=== PATIENT | female | born 1980 | race Caucasian/White ===

== ENCOUNTER 2016-06-26 08:00 | Inpatient (IN) | payer OTHER ==
[~2016-06-26] VITALS: Ht 165.1 cm; Wt 108.2 kg
[~2016-06-26 08:00] MED LIST: EPHEDrine SULFATE 50 MG/5 ML SYG ONE; OXYTOCIN 30 UNITS/LR 500 ML BAG IV ONE; PREN-39 PO
[2016-06-26] MEDS ORDERED: LACTATED RINGER'S 1,000 ML IV ONE (08:31)
[2016-06-26] MEDS ORDERED: LACTATED RINGER'S 1,000 ML IV SCH (08:41)
[2016-06-26 08:44] VITALS: Ht 165.1 cm; Wt 108.2 kg
[2016-06-26 08:45] VITALS: BP 124/68; PULSE 89; RESP 18
[2016-06-26] MEDS ORDERED: CLINDAMYCIN 900 MG/D5W (PMX) 50 ML IV SCH (09:00)
[2016-06-26] MEDS ORDERED: CARBOPROST 250 MCG INJ IM PRN ×2 (09:00→22:00)
[2016-06-26] MEDS ORDERED: METHYLERGONOVINE 0.2 MG INJ IM PRN ×2 (09:00→22:00)
[2016-06-26] MEDS ORDERED: ONDANSETRON 4 MG INJ IV ONE (09:00)
[2016-06-26] MEDS ORDERED: OXYTOCIN 30 UNITS/LR 500 ML IV SCH (09:00)
[2016-06-26] MEDS ORDERED: CITRIC ACID/NA CITRATE 30 ML CUP PO ONE (09:00)
[2016-06-26] MEDS ORDERED: MISOPROSTOL 200 MCG TAB PR PRN ×2 (09:00→22:00)
[2016-06-26] MEDS ORDERED: OXYTOCIN 30 UNITS/LR 500 ML IV PRN ×2 (09:00→22:00)
[2016-06-26 09:37] LABS: INR 0.94; PARTIAL THROMBOPLASTIN TIME 28.9 Sec (25.0-35.0); PROTIME 12.6 Sec (12.2-14.2)
[2016-06-26 11:57] LABS: ADD SCAN DIFF NO
[2016-06-26 12:08] LABS: BASOPHILS % 0.2 % (0.0-2.0); EOSINOPHILS % 0.4 % (0.0-7.0); HEMATOCRIT 34.7 % (37.0-47.0); LYMPHOCYTES # 1.7 10^3/ul (0.8-2.9); LYMPHOCYTES % 18.3 % (15.0-51.0); MEAN CORPUSCULAR HEMOGLOBIN 27.7 pg (29.0-33.0); MEAN CORPUSCULAR HGB CONC 31.7 g/dl (32.0-37.0); MEAN CORPUSCULAR VOLUME 87.4 fl (82.0-101.0); MEAN PLATELET VOLUME 11.5 fl (7.4-10.4); MONOCYTE # 0.7 10^3/ul (0.3-0.9); MONOCYTES % 7.4 % (0.0-11.0); NEUTROPHIL # 6.5 10^3/ul (1.6-7.5); NEUTROPHILS % 71.3 % (39.0-77.0); PLATELET COUNT 164 10^3/UL (140-415); RED BLOOD COUNT 3.97 10^6/ul (4.20-5.40); RED CELL DISTRIBUTION WIDTH 15.4 % (11.5-14.5); WHITE BLOOD COUNT 9.2 10^3/ul (4.8-10.8)
[2016-06-26] MEDS ORDERED: GENTAMICIN 80 MG/NS (PMX) 50 ML IVPB SCH (15:30)
[2016-06-26] MEDS ORDERED: PHENYLephrine (100 MCG/ML) 5ML SYG ONE ×3 (15:35→16:17)
[2016-06-26] MEDS ORDERED: EPHEDrine SULFATE 50 MG/5 ML SYG ONE (15:40)
[2016-06-26] MEDS ORDERED: KETOROLAC 15 MG INJ IV ONE (16:00)
[2016-06-26] MEDS ORDERED: HYDROmorphONE 1 MG/ML SYG IV PRN ×2 (16:00)
[2016-06-26] MEDS ORDERED: DIPHENHYDRAMINE 50 MG INJ IV PRN ×2 (16:00)
[2016-06-26] MEDS ORDERED: FENTAnyl 50 MCG/ML VIAL IV PRN ×2 (16:00)
[2016-06-26] MEDS ORDERED: ONDANSETRON 4 MG INJ IV PRN ×2 (16:00)
[2016-06-26] MEDS ORDERED: HYDROmorphONE (0.2 MG/ML) 10ML SYG IV PRN ×3 (16:00)
[2016-06-26] MEDS ORDERED: MEPERIDINE 25 MG INJ IV PRN (16:00)
[2016-06-26] MEDS ORDERED: morphine 2 MG INJ IV PRN ×2 (16:00)
[2016-06-26] MEDS ORDERED: KETOROLAC 30 MG INJ IV ONE (16:00)
[2016-06-26] MEDS ORDERED: PROCHLORPERAZINE 10 MG INJ IV PRN (16:00)
[2016-06-26] MEDS ORDERED: morphine (1 MG/ML) 10ML SYRINGE IV PRN ×3 (16:00)
[2016-06-26] MEDS ORDERED: NALOXONE (0.4 MG/ML) INJ IV PRN (16:00)
[2016-06-26] MEDS ORDERED: METOCLOPRAMIDE 10 MG INJ IV PRN (16:00)
--- NOTE | 2016-06-26 16:44 | HP ---
Date/Time of Note Date/Time of Note DATE: 06/26/16 TIME: 16:40 OB - History Hx of Present Free Text/Dictation admitted for repeat C/S + BTL Last Menstrual Period: Sep 27, 2015 Estimated Due Date: Jul 03, 2016 : 6 Para: 2 Spontaneous : 1 Therapeutic : 2 Care: Good Care Ultrasounds: Normal mid trimester US Obstetrical Complications: None Medical Complications: None, Other (previous C/S X 2 ) Past Family/Social History * Past Medical, Surgical, Family and Obstetric Histories reviewed from chart. Blood Type: A+ Rubella: immune RPR/VDRL: Negative GBS Status: Negative HBsAG: Negative OB Admission Exam Vital Signs Vital Signs Vital Signs Date Time Temp Pulse Resp B/P Pulse Ox O2 Delivery O2 Flow Rate FiO2 06/26/16 08:45 98.3 89 18 124/68 Room Air Physical Exam HEENT: WNL Heart: Rhythm Normal Lungs: Clear, Equal Abdomen: WNL Extremities: Normal Reflexes: Normal Cervical Dilatation: None Effacement: 0% Station: -3 Membranes: Intact Heart Rate: 130's Accelerations: Accelerations Present Decelerations: No Decelerations Varibility: Moderate Contractions on Admission: None Last 72 hours Lab Results CBC & BMP 06/26/16 09:05 OB Assessment/Plan Other Assessment: term gestation previous C/S X 2 desired sterilization breech presentation Other plan: repeat C/S + BTL NAMITA BRADFORD MD Jun 26, 2016 16:44
--- NOTE | 2016-06-26 16:49 | OPR ---
Operative Report Planned Procedure Procedure date Jun 26, 2016 Procedure(s) repeat C/S + BTL Performed by: NAMITA BRADFORD MD Assisting provider: GOKUL HERNANDES MD Anesthesiologist: ROSANNE GUTIERREZ Pre-procedure diagnosis term gestation previous C/S X 2 desired sterilization breech presentation Anesthesia Type: spinal Procedure Description Under satisfactory anaesthesia a Pfannenstiel incision was made two fingerbreadth above and parallel to the symphysis of pubis around the previous scar and previous scar was removed Incision was extended laterally to the border of the Recti muscles on either sides. Incision was carried down with sharp and blunt dissection until fascia was reached. Anterior Recti muscle fascia was incised in mid portion and incision extended laterally to the border of skin incision. Fascia was mobilized from muscle superiorly and Recti muscles were from midline using sharp and blunt dissection. Peritoneum was visualized; Avoiding bowel and bladder it was incised . Incision was extended superiorly and inferiorly. Bladder blade was placed. Posterior peritoneum covering the lower segment of the uterus and lower segment of the uterus were incised.Low transverse uterine incision was made on lower segment of the uterus. Incision extended laterally to the border of Round Lig. on either sides and baby was delivered via total breech extraction without difficulty . Amniotic fluid appeared clear. Cord blood was obtained and cord had 3 vessels . Placenta was delivered spontaneously and appeared intact and complete. Intrauterine cavity was rubbed with a laparotomy sponge. Uterine incision was closed in 2 layers using running stitches of No1 Monocryl. Hemostasis appeared secure. Ovaries and Fallopian tubes were within normal limits. Bilateral Tubal Ligation was performed by following procedure: R fallopian tube was raised in mid portion; a Dyana clamp was placed below the fimbriae extending to proximal portion of the fallopian tube. Another clamp was placed parallel to the first and after incising the fallopian tube the stump was sutured using 0 Vicryl stitch. Hemostasis was secure . Same procedure was done on fallopian tube on the opposite side. Hemostasis appeared to be secure on ligated sites of either fallopian tubes. Announcing needle, lap sponge and instrument count to be correct abdomen was closed in layers as follows: Peritoneum and Recti muscles with running stitches of 20 Vicryl. Fascia with running stitch of No 1 PDS. Subcutaneous tissue with running stitches of 20 Chromic and skin was closed using fernando. Patient tolerated the procedure well and was transferred to [facility] in good condition. Post-Procedure Post-procedure diagnosis S/P C/S + BTL Findings: Live Baby in moises breech presentation Specimen removed: Yes Specimen description segments of R and L fallopian tubes Complications: None Pt Condition post procedure: stable Disposition: PACU Physician Certification I, the undersigned physician, hereby certify that I have discussed the procedure described in this consent form with this patient (or the patient's legal front office representative), including: * The risk and benefits of the procedure; * Any adverse reactions that may reasonably be expected to occur; * Any alternative efficacious methods of treatment which may be medically viable ; * The potential problems that may occur during recuperation; * Potential for blood transfusion and associated risks/benefits; and * Any research or economic interest I may have regarding this treatment. I further certify that the patient/legally responsible person was encouraged to ask question and that all questions were answered. NAMITA BRADFORD MD Jun 26, 2016 16:49
--- NOTE | 2016-06-26 20:45 | DELSUM ---
Delivery Summary A-C Datetime Report Generated by CPN: 06/26/2016 20:45 DELIVERY PERSONNEL Bottom Sander: Lilia Travis MATERNAL INFORMATION Delivery Anesthesia: Spinal Medications in Delivery: SEE ANESTHESIA RECORD Estimated Blood Loss (ml): 600 Placenta Cultured: No Maternal Complications: None LABOR SUMMARY EDC: 07/03/2016 00:00 No. Babies in Womb: 1 Attempted: No Labor Anesthesia: None LABOR INFORMATION Reason for Induction: Not Applicable Oxytocin: N/A Group B Beta Strep: Negative Antibiotics # of Doses: CLEOCIN 900 MG; GENTAMICIN 80 MG Antibiotics Time of Last Dose: 06/26/2016 15:35 Steroids Given: None Reason Steroids Not Administered: Not Applicable MEMBRANES Membranes Rupture Method: Artificial Rupture of Membranes: 06/26/2016 15:53 Length of Rupture (hr): 0.02 Amniotic Fluid Color: Clear Amniotic Fluid Amount: Moderate Amniotic Fluid Odor: None STAGES OF LABOR Stage 3 hr: 0 Stage 3 min: 0 CSECTION DELIVERY Primary Indication: Repeat Elective CSection Urgency: Elective CSection Incidence: Repeat Labor: No Labor Elective: Elective CSection Incision: Lower Uterine Transverse Sterilization Procedure: [place] BABY A INFORMATION Infant Delivery Date/Time: 06/26/2016 15:54 Method of Delivery: Born in Route : No : N/A Forceps: N/A Vacuum Extraction: N/A Shoulder Dystocia : N/A SHOULDER DYSTOCIA BABY A Infant Delivery Date/Time: 06/26/2016 15:54 PRESENTATION/POSITION BABY A Presentation: Breech Cephalic Presentation: N/A Breech Presentation: Mirza PLACENTA INFORMATION BABY A Placenta Delivery Time : 06/26/2016 15:54 Placenta Method of Delivery: Manual Removal Placenta Status: Delivered SCORES BABY A Heart Rate 1 min: >100 bpm Resp Effort 1 min: Good Cry Reflex Irritability 1 min: Cough/Sneeze/Pulls Away Muscle Tone 1 min: Active Motion Color 1 min: Blue/Pale Resuscitation Effort 1 min: Tactile Stimulation SCORE 1 MIN: 8 Heart Rate 5 min: >100 bpm Resp Effort 5 min: Good Cry Reflex Irritability 5 min: Cough/Sneeze/Pulls Away Muscle Tone 5 min: Active Motion Color 5 min: Body [place]cup[place], Extremit Blue Resuscitation Effort 5 min: N/A SCORE 5 MIN: 9 INFANT INFORMATION BABY A Gestational Age at Delivery: 39.0 Gestational Status: Full Term- 39- 40.6 Weeks Infant Outcome : Liveborn Condition : Stable Sex: Male IDENTIFICATION/MEDS BABY A ID Band Number: [id number] ID Band Location: Right Leg; Left Arm Sensor Applied: Yes Sensor Number: [id number] Sensor Location : Cord Clamp Vitamin K Given : Not Given Erythromycin Given: Not Given WEIGHT/LENGTH BABY A Infant Birthweight (gm): 3680 Weight (lb): 8 Infant Weight (oz): 2 Infant Length (in): 20.00 Infant Length (cm): 50.80 CORD INFORMATION BABY A No. Cord Vessels: 3 Nuchal Cord : N/A Cord Blood Taken: Yes Suction: Mouth; Nose ASSESSMENT BABY A Infant Complications: None Physical Findings- Other: N/A Respirations: Appears Normal Literacy Specialist/ALS Called : No Infant Care By: JOSEPH GONZALEZ; BRITTANY RT Transferred To: Remains with Mother
[2016-06-26] MEDS ORDERED: NA PHOSPHATE/BIPHOS 133 ML ENEMA PR PRN (22:00)
[2016-06-26] MEDS ORDERED: LANOLIN 7 GM TUBE TOP PRN (22:00)
[2016-06-26] MEDS: LACTATED RINGER'S 1,000 ML IV SCH (22:20)
[2016-06-26] MEDS: GENTAMICIN 80 MG/NS (PMX) 50 ML IVPB SCH (22:20)
[2016-06-26 22:45] VITALS: BP 129/72; PULSE 96; RESP 18
[2016-06-26] MEDS: CLINDAMYCIN 600 MG/D5W (PMX) 50 ML IVPB SCH (23:34)
[2016-06-26 23:53] VITALS: BP 114/59; PULSE 83; RESP 18
[2016-06-27 04:00] VITALS: BP 110/58; PULSE 91; RESP 18
[2016-06-27] MEDS: OXYCODONE/ACETAMINOPHEN (5/325) TAB PO PRN ×2 (04:26→20:52)
[2016-06-27] MEDS: GENTAMICIN 80 MG/NS (PMX) 50 ML IVPB SCH ×3 (05:43→22:06)
[2016-06-27] MEDS: CLINDAMYCIN 600 MG/D5W (PMX) 50 ML IVPB SCH ×3 (06:42→17:13)
[2016-06-27 07:40] VITALS: BP 102/62; PULSE 99; RESP 18
[2016-06-27] MEDS ORDERED: BISACODYL 10 MG SUPP PR ONE (09:00)
[2016-06-27] MEDS: KETOROLAC 30 MG INJ IV PRN ×2 (09:26→15:38)
[2016-06-27] MEDS: SENNA/DOCUSATE NA (8.6MG/50MG) TAB PO SCH ×2 (09:27→20:52)
[2016-06-27] MEDS: LACTATED RINGER'S 1,000 ML IV SCH (09:28)
[2016-06-27 09:47] LABS: ADD SCAN DIFF NO
[2016-06-27 09:49] LABS: BASOPHILS % 0.1 % (0.0-2.0); EOSINOPHILS % 0.2 % (0.0-7.0); HEMATOCRIT 32.8 % (37.0-47.0); HEMOGLOBIN 10.4 g/dl (12.0-16.0); LYMPHOCYTES # 1.3 10^3/ul (0.8-2.9); LYMPHOCYTES % 12.7 % (15.0-51.0); MEAN CORPUSCULAR HEMOGLOBIN 27.4 pg (29.0-33.0); MEAN CORPUSCULAR HGB CONC 31.7 g/dl (32.0-37.0); MEAN CORPUSCULAR VOLUME 86.5 fl (82.0-101.0); MEAN PLATELET VOLUME 11.1 fl (7.4-10.4); MONOCYTE # 0.6 10^3/ul (0.3-0.9); MONOCYTES % 5.5 % (0.0-11.0); NEUTROPHIL # 8.2 10^3/ul (1.6-7.5); NEUTROPHILS % 80.5 % (39.0-77.0); PLATELET COUNT 143 10^3/UL (140-415); RED BLOOD COUNT 3.79 10^6/ul (4.20-5.40); RED CELL DISTRIBUTION WIDTH 15.5 % (11.5-14.5); WHITE BLOOD COUNT 10.2 10^3/ul (4.8-10.8)
[2016-06-27 12:15] VITALS: BP 113/62; PULSE 99; RESP 19
[2016-06-27 15:38] VITALS: BP 123/65; PULSE 99; RESP 18
--- NOTE | 2016-06-27 16:24 | PN ---
Date/Time of Note Date/Time of Note DATE: 06/27/16 TIME: 16:23 Assessment/Plan VTE Prophylaxis VTE Prophylaxis Intervention: ambulation Lines/Catheters IV Catheter Type (from Nrsg): Peripheral IV Assessment/Plan Assessment/Plan POD # 1 S/P C/S will advance diet Subjective 24 Hr Interval Summary Passing flatus NO BM Constitutional: BM, ambulates, flatus, improved, no complaints, urine output Pain Control: well controlled Exam/Review of Systems Vital Signs Vitals Vital Signs Date Time Temp Pulse Resp B/P Pulse Ox O2 Delivery O2 Flow Rate FiO2 06/27/16 15:38 98.2 99 18 123/65 Room Air Intake and Output 06/26/16 06/26/16 06/27/16 15:00 23:00 07:00 Intake Total 1800 ml 427 ml 725 ml Output Total 800 ml 1020 ml 900 ml Balance 1000 ml -593 ml -175 ml Exam Free Text/Dictation see nurses notes Constitutional: alert, oriented, well developed Psych: nl mood/affect, no complaints Head: atraumatic, normocephalic Eyes: EOMI, nl conjunctiva, nl lids, nl sclera ENMT: mucosa pink and moist, nl external ears & nose, nl lips & teeth, nl nasal mucosa & septum Neck: non-tender, supple Respiratory: clear to auscultation, normal air movement Cardiovascular: nl pulses, regular rate and rhythm Gastrointestinal: nl liver, spleen, non-tender, soft Musculoskeletal: nl extremities to inspection, nl gait and stance Extremities: normal pulses 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
[2016-06-27] MEDS: CLINDAMYCIN 300 MG CAP PO SCH ×2 (18:00→23:57)
[2016-06-27 20:00] VITALS: BP 135/86; PULSE 109; RESP 18
[2016-06-27] MEDS: IBUPROFEN 800 MG TAB PO SCH (21:57)
[2016-06-28] MEDS: OXYCODONE/ACETAMINOPHEN (5/325) TAB PO PRN ×4 (01:06→22:13)
[2016-06-28 04:00] VITALS: BP 107/69; PULSE 85; RESP 20
[2016-06-28] MEDS: IBUPROFEN 800 MG TAB PO SCH ×3 (05:31→21:23)
[2016-06-28] MEDS: CLINDAMYCIN 300 MG CAP PO SCH ×4 (05:31→23:54)
[2016-06-28] MEDS: GENTAMICIN 80 MG/NS (PMX) 50 ML IVPB SCH ×3 (05:31→21:23)
[2016-06-28] MEDS: LACTATED RINGER'S 1,000 ML IV SCH (05:59)
[2016-06-28 08:23] VITALS: BP 108/61; PULSE 75; RESP 20
[2016-06-28 08:24] LABS: ADD SCAN DIFF NO
[2016-06-28 08:30] LABS: BASOPHILS % 0.2 % (0.0-2.0); EOSINOPHILS % 0.4 % (0.0-7.0); HEMATOCRIT 30.1 % (37.0-47.0); HEMOGLOBIN 9.7 g/dl (12.0-16.0); LYMPHOCYTES # 1.2 10^3/ul (0.8-2.9); LYMPHOCYTES % 11.3 % (15.0-51.0); MEAN CORPUSCULAR HGB CONC 32.2 g/dl (32.0-37.0); MEAN PLATELET VOLUME 10.8 fl (7.4-10.4); MONOCYTE # 0.9 10^3/ul (0.3-0.9); MONOCYTES % 8.4 % (0.0-11.0); NEUTROPHIL # 8.6 10^3/ul (1.6-7.5); NEUTROPHILS % 78.5 % (39.0-77.0); PLATELET COUNT 163 10^3/UL (140-415); RED BLOOD COUNT 3.46 10^6/ul (4.20-5.40); RED CELL DISTRIBUTION WIDTH 15.8 % (11.5-14.5); WHITE BLOOD COUNT 10.9 10^3/ul (4.8-10.8)
[2016-06-28] MEDS: SENNA/DOCUSATE NA (8.6MG/50MG) TAB PO SCH ×2 (09:00→21:23)
[2016-06-28] MEDS: ACETAMINOPHEN/CODEINE #3 TAB PO PRN ×3 (09:37→18:37)
[2016-06-28 16:42] VITALS: BP 124/59; PULSE 89; RESP 20
[2016-06-28 20:05] VITALS: BP 134/72; PULSE 95; RESP 20
--- NOTE | 2016-06-28 22:24 | DS ---
Date/Time of Note Date/Time of Note home next day DATE: 06/28/16 TIME: 22:22 Obstetrical Discharge Record Final Diagnosis Final Diagnosis: Term delivered Vaginal Delivery Obstetrical Delivery: Bilateral Tubal Ligation Section Section: Repeat Condition on Discharge Physical Assessment Last Vitals: see nurses notes Voiding: Yes Bowel Movement: Yes Breast: Soft, non-tender, Filling Fundus: Firm Abdomen and Incision: soft BS + Incision: healing well Episiotomy: NA Calf Tenderness: No Patient Condition: Good NAMITA BRADFORD MD Jun 28, 2016 22:24
--- NOTE | 2016-06-28 22:26 | DS ---
Date/Time of Note Date/Time of Note home next day DATE: 06/28/16 TIME: 22:24 Discharge Summary Admission/Discharge Info Admit Date/Time Jun 26, 2016 at 08:00 Discharge Date/Time 06/29/2016 Final Diagnosis S/P C/S+ BTL Patient Condition: Good Procedures repeat C/S + BTL Hx of Present Illness 36 y/o female had repeat C/S + BTL Hospital Course Uncomplicated Home Meds Reported Medications Vits W-Ca,Fe,Fa(<1MG) ( Vitamins) 1 Tab Tablet, 1 TAB PO DAILY 12/05/11 Follow-up Plan 2 days for staple removal Pending Labs Laboratory Tests Test 06/28/16 08:15 White Blood Count 10.910^3/ul (4.8-10.8) Red Blood Count 3.4610^6/ul (4.20-5.40) Hemoglobin 9.7g/dl (12.0-16.0) Hematocrit 30.1% (37.0-47.0) Mean Corpuscular Volume 87.0fl (82.0-101.0) Mean Corpuscular Hemoglobin 28.0pg (29.0-33.0) Mean Corpuscular Hemoglobin Concent 32.2g/dl (32.0-37.0) Red Cell Distribution Width 15.8% (11.5-14.5) Platelet Count 83693^3/UL (140-415) Mean Platelet Volume 10.8fl (7.4-10.4) Neutrophils % 78.5% (39.0-77.0) Lymphocytes % 11.3% (15.0-51.0) Monocytes % 8.4% (0.0-11.0) Eosinophils % 0.4% (0.0-7.0) Basophils % 0.2% (0.0-2.0) Nucleated Red Blood Cells % 0.0/100WBC (0.0-0.0) Neutrophils # 8.610^3/ul (1.6-7.5) Lymphocytes # 1.210^3/ul (0.8-2.9) Monocytes # 0.910^3/ul (0.3-0.9) Eosinophils # 0.010^3/ul (0.0-0.5) Basophils # 0.010^3/ul (0.0-0.1) Nucleated Red Blood Cells # 0.010^3/ul (0.0-0.0) NAMITA BRADFORD MD Jun 28, 2016 22:26
--- NOTE | 2016-06-28 22:27 | PD.PPDC ---
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 Physician Information 36 y/o female had repeat C/S + BTL Diagnosis Final Diagnosis: S/P repeat C/S + BTL Condition Patient Condition: Good Diet Diet: Resume Regular Diet Activity/Restrictions Activity: August Shower Restrictions: No Exercising No Lifting Nothing in the Vagina Return to Work or School: August 28, 2016 Follow-up Follow-up with Physician: 2, 4, 5, Day/Days (in clinic for staple removal ) Return to clinic for POND SCALER Instructions: Fever greater than 101 Chills OB Instructions: Breast Tenderness Depression Surgical Instructions: Incisional Drainage Incisional Redness NAMITA BRADFORD MD Jun 28, 2016 22:27
[2016-06-28] MEDS ORDERED: IBUP800T25 PO (22:28)
[2016-06-28] MEDS ORDERED: Oxycodone/Acetamin (5/325) PO (22:28)
[2016-06-29 04:00] VITALS: BP 120/70; PULSE 87; RESP 18
[2016-06-29] MEDS: GENTAMICIN 80 MG/NS (PMX) 50 ML IVPB SCH (05:22)
[2016-06-29] MEDS: CLINDAMYCIN 300 MG CAP PO SCH ×2 (05:22→11:54)
[2016-06-29] MEDS: IBUPROFEN 800 MG TAB PO SCH (05:22)
[2016-06-29] MEDS: ACETAMINOPHEN/CODEINE #3 TAB PO PRN (05:31)
[2016-06-29 08:00] VITALS: BP 106/65; PULSE 81; RESP 17
[2016-06-29] MEDS ORDERED: DIPHTH/TET/ACEL PERTUSS (ADULT) 0.5 ML VIAL IM* ONE (09:00)
[2016-06-29] MEDS: SENNA/DOCUSATE NA (8.6MG/50MG) TAB PO SCH (11:54)
[2016-06-29] MEDS: OXYCODONE/ACETAMINOPHEN (5/325) TAB PO PRN (11:55)
== END 2016-06-29 16:32 | disposition home or self-care (01) | DRG 766 ==
LOC: L-D 08:00 → PP1 21:28
PROVIDERS: ADMIT Obstetrics & Gynecology; ATTEND Obstetrics & Gynecology
PROC: 0UL70ZZ Occlusion of Bilateral Fallopian Tubes, Open Approach (ICD-10-PCS; 2016-06-26)
PROC: 10D00Z1 Extraction of Products of Conception, Low, Open Approach (ICD-10-PCS; principal; 2016-06-26 09:00)
DX: O34.211 Maternal care for low transverse scar from previous cesarean delivery (principal); E66.01 Morbid (severe) obesity due to excess calories; O32.1XX0 Maternal care for breech presentation, not applicable or unspecified; O99.214 Obesity complicating childbirth; Z68.39 Body mass index [BMI] 39.0-39.9, adult; Z3A.37 37 weeks gestation of pregnancy; Z30.2 Encounter for sterilization; Z37.0 Single live birth
CPT/HCPCS: 85025; 85610; 85730; 86592; 86850; 86900; 86901; 88302; 90715; 99464; J1170; J1580; J1885; J2370; J2405; J2590; J7120